=== PATIENT | female | born 2005 | race African-American/Black ===

== ENCOUNTER 2023-01-29 21:46 | Emergency (ER) | payer SELFPAY ==
[2023-01-29 22:44] LABS: Bilirubin Negative (Negative); Blood, Urine 3+ (Negative); CAUTI Indications for Culture Acute Hematuria; Clarity Clear (Clear); Glucose, Urine (Dipstick) Normal (Negative); Ketone, Urine Negative (Negative); Leukocyte 75 Leu/uL (Negative); Nitrite Negative (Negative); Protein, Urine (Dipstick) 10 mg/dL (Neg-Trace); Specific Gravity, Urine 1.018 (1.002-1.036); Urobilinogen Normal mg/dL (Less than 2); pH, Urine 6.5 (5.0-9.0)
[2023-01-29 22:46] LABS: Bacteria/HPF Rare-Few HPF (None Seen)
[2023-01-29 22:47] LABS: Pregnancy Test - Urine (BHCG) Negative (Negative); Pregu Control Background? CLEAR/WHITE (CLR/WHITE); Pregu Control Bar Appear? YES (CONTROL BAR); Specific Gravity 1.018 (1.002-1.036); Urine Culture Reflex No No
[2023-01-29 23:13] LABS: SARS-CoV-2 NAA Rapid Test Not Detected (NotDetected)
== END 2023-01-30 00:06 | disposition home or self-care (01) ==
LOC: ERS 21:46
DX: J20.9 Acute bronchitis, unspecified (principal); R31.9 Hematuria, unspecified; J45.909 Unspecified asthma, uncomplicated; Z79.899 Other long term (current) drug therapy
CPT/HCPCS: 71045; 81001; 81025

== ENCOUNTER 2023-09-17 09:56 | Emergency (ER) | payer OTHER, SELFPAY ==
[2023-09-17 10:41] LABS: Pregnancy Test - Urine (BHCG) Negative (Negative); Pregu Control Background? CLEAR/WHITE (CLR/WHITE); Pregu Control Bar Appear? YES (CONTROL BAR); Specific Gravity 1.014 (1.002-1.036)
[2023-09-17 10:43] LABS: Bilirubin Negative (Negative); Blood, Urine Negative (Negative); CAUTI Indications for Culture Dysuria,urgency,freq; Clarity Clear (Clear); Glucose, Urine (Dipstick) Normal (Negative); Ketone, Urine Negative (Negative); Leukocyte 75 Leu/uL (Negative); Nitrite Negative (Negative); Protein, Urine (Dipstick) Negative (Neg-Trace); RBC/HPF 0-3 HPF (0-3); Specific Gravity, Urine 1.014 (1.002-1.036); Urobilinogen Normal mg/dL (Less than 2); pH, Urine 7.5 (5.0-9.0)
[2023-09-17 10:44] LABS: Bacteria/HPF 1+ HPF (None Seen)
[2023-09-17 10:45] LABS: Urine Culture Reflex No No
== END 2023-09-17 10:57 | disposition home or self-care (01) ==
LOC: ERS 09:56
DX: N39.0 Urinary tract infection, site not specified (principal)
CPT/HCPCS: 81001; 81025; 99283